=== PATIENT | male | born 2000 | race African-American/Black ===

== ENCOUNTER 2019-04-06 18:11 | Emergency (ER) | payer SELFPAY ==
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
[2019-04-06] MEDS ORDERED: DOXYCYCLINE 100 MG CAP PO ONE (19:21)
[2019-04-06] MEDS ORDERED: AZITHROMYCIN 250 MG TAB ONE (19:21)
[2019-04-06] MEDS ORDERED: metroNIDAZOLE 500 MG TABLET ONE (19:21)
[2019-04-06] MEDS ORDERED: CEFTRIAXONE 1000 MG/VIAL ONE (19:21)
[2019-04-06] MEDS ORDERED: WATER FOR INJ,STERILE 10 ML ONE (19:22)
[2019-04-06 19:32] LABS: Urine Blood NEGATIVE (NEG); Urine Glucose NEGATIVE (NEG); Urine Protein NEGATIVE (NEG); Urine pH 7.5 (5.0-7.0)
== END 2019-04-06 19:58 | disposition home or self-care (01) ==
LOC: ER 18:11
DX: R30.0 Dysuria (principal); F17.210 Nicotine dependence, cigarettes, uncomplicated
CPT/HCPCS: 81003; 87086; 87088; 96372; 99283